=== PATIENT | female | born 1990 ===

== ENCOUNTER 2017-03-28 12:10 | Observation (INO) | payer OTHER ==
--- NOTE | 2017-03-28 12:50 | ED PDOC ---
HPI: Female Pain Time Seen by Provider: 03/28/17 12:49 Chief Complaint (Nursing): Female Genitourinary Chief Complaint (Provider): abdominal pain History Per: Patient (26 y/o female LMP 02/07/2017 here with crampy lower abdominal pain sent by [facility] for possible ectopic. Patient states she presented to clinic for elective termination but was not found to have any iup on ultrasound and sent to ED for possible ectopic. Denies any vaginal bleeding.) Past Medical History Reviewed: Historical Data, Nursing Documentation, Vital Signs Vital Signs: Last Vital Signs Temp 98.2 F 03/28/17 12:23 Pulse 74 03/28/17 12:23 Resp 16 03/28/17 12:23 BP 125/66 03/28/17 12:23 Pulse Ox 97 03/28/17 12:23 - Family History Family History: States: No Known Family Hx - Allergies Allergies/Adverse Reactions: Allergies Allergy/AdvReac Type Severity Reaction Status Date / Time No Known Allergies Allergy Verified 03/28/17 12:23 Review of Systems ROS Statement: Except As Marked, All Systems Reviewed And Found Negative Physical Exam - Reviewed Nursing Documentation Reviewed: Yes Vital Signs Reviewed: Yes - Physical Exam Appears: Positive for: Well, Non-toxic, No Acute Distress Head Exam: Positive for: ATRAUMATIC, NORMAL INSPECTION, NORMOCEPHALIC Skin: Positive for: Normal Color, Warm, DRY Eye Exam: Positive for: EOMI, Normal appearance, PERRL ENT: Positive for: Normal ENT Inspection Neck: Positive for: Normal, Painless ROM Cardiovascular/Chest: Positive for: Regular Rate, Rhythm Respiratory: Positive for: CNT, Normal Breath Sounds Gastrointestinal/Abdominal: Positive for: Normal Exam, Bowel Sounds, Soft Back: Positive for: Normal Inspection Extremity: Positive for: Normal ROM Neurologic/Psych: Positive for: Alert, Oriented - Laboratory Results Result Diagrams: 03/28/17 13:35 03/28/17 13:45 - ECG O2 Sat by Pulse Oximetry: 97 - Progress ED Course And Treament: us transvaginal: (+) ectopic 15 x [address] root in ovary d/w dr. Choudhary. Patient to OR at 6pm Disposition - Clinical Impression Clinical Impression: Ectopic of ovary - Patient ED Disposition Is Patient to be Admitted: Yes - Disposition Disposition Time: 16:11 Condition: FAIR - Pt Status Changed To: Hospital Disposition Of: Inpatient - Admit Certification Admit to Inpatient:: After my assessment, the patient will require hospitalization for at least two midnights. This is because of the severity of symptoms shown, intensity of services needed, and/or the medical risk in this patient being treated as an outpatient.
[2017-03-28 13:47] LABS: BASO # 0.1 K/uL (0.0-0.2); BASO % 1.4 % (0.0-2.0); EOS # 0.2 K/uL (0.0-0.7); EOS % 2.8 % (0.0-4.0); HEMATOCRIT 35.3 % (34.0-47.0); LYMPH # 1.3 K/uL (1.0-4.3); LYMPH % 19.6 % (20.0-40.0); MEAN CELL VOLUME 96.4 fl (81.0-99.0); MEAN CORPUSCULAR HEMOGLOBIN 31.9 pg (27.0-31.0); MEAN CORPUSCULAR HGB CONC 33.1 g/dL (33.0-37.0); MEAN PLATELET VOLUME 8.5 fl (7.2-11.7); MONO # 0.4 K/uL (0.0-0.8); MONO % 6.4 % (0.0-10.0); NEUT # 4.7 K/uL (1.8-7.0); NEUT % 69.8 % (50.0-75.0); RED CELL DISTRIBUTION WIDTH 13.4 % (11.5-14.5); WHITE BLOOD COUNT 6.8 K/uL (4.8-10.8)
[2017-03-28 14:19] LABS: ALB/GLOB RATIO 1.4 (1.0-2.1); ALKALINE PHOSPHATASE 74 U/L (38-126); ALT/SGPT 42 U/L (9-52); AST/SGOT 28 U/L (14-36); BILIRUBIN,TOTAL 0.5 mg/dl (0.2-1.3); BLOOD UREA NITROGEN 10 mg/dl (7-17); CALCIUM 9.2 mg/dL (8.4-10.2); CARBON DIOXIDE 23 mmol/L (22-30); CHLORIDE 104 mmol/L (98-107); GFR AFRICAN-AMERICAN > 60; GLUCOSE,RANDOM 107 mg/dL (65-105); POTASSIUM 3.7 MMOL/L (3.6-5.0); SODIUM 139 mmol/l (132-148); TOTAL PROTEIN 7.5 G/DL (6.3-8.2)
[2017-03-28] MEDS ORDERED: Sodium Chloride 0.9% 1,000 ML IV STA (15:29)
--- NOTE | 2017-03-28 15:45 | US ---
HISTORY: r/o ectopic. LMP 02/08/2017. Beta HCG results: 54406 units. COMPARISON: None available. TECHNIQUE: This and duplex so there is likely FINDINGS: UTERUS: Measures 4.5 x 6.5 x 9.3 cm. Normal in size and appearance. No fibroid or other mass lesion seen. ENDOMETRIUM: Measures endometrial hypertrophy. mm in diameter. Saclike structure likely decidual reaction identified in the uterus. Endometrial thickness 15 mm. CERVIX: No cervical abnormality identified. Closed cervix 4.1 cm. RIGHT OVARY: Measures 1.8 x 2.6 x 3.4 cm. No solid mass. Normal flow. Complex cyst with debris and an echogenic rim identified. No evidence of ectopic on the right. LEFT OVARY: Ectopic gestation in the left adnexa measuring 14 x 16 mm. Yolk sac and remnants of the pole identified. Overall measurements of the left ovary 1.6 x 2.2 x 2.1 cm. FREE FLUID: No significant free fluid noted. OTHER FINDINGS: None. IMPRESSION: Evidence of ectopic gestation on the left. Saclike structure within the endometrium without evidence of yolk sac or gestational pole, likely decidual reaction.
[2017-03-28] MEDS ORDERED: Rocuronium 10 mg/ml (5 ml) ONE (16:21)
[2017-03-28] MEDS ORDERED: Propofol 10 mg/ml Inj (20 ML) ONE (16:21)
[2017-03-28] MEDS ORDERED: Neostigmine Methylsulfate 3mg/3ml Syringe IV ONE (16:21)
[2017-03-28] MEDS ORDERED: Midazolam 2 MG/2 ML VIAL ONE (16:21)
[2017-03-28] MEDS ORDERED: Succinylcholine 200 mg/10 ml Inj IV ONE (16:22)
[2017-03-28 17:01] LABS: PARTIAL THROMBOPLASTIN TIME 33.1 Seconds (25.6-37.1)
--- NOTE | 2017-03-28 17:21 | CP.PCM.CON ---
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 LMP 02/07/2017, patient was told to visit ER after no IUP gestation was discovered via abdominal US. Currently stating crampy lower abdominal pain which is 3/10 intensity. Denies f/ c/n/v/cp/sob/dizziness/ vaginal bleeding/dysuria. Last meal was 12 pm, ate fried chicken. PMH: denies PSH: CS x 1, term Meds: none Allergies: NKDA Review of Systems - Review of Systems All systems: reviewed and no additional remarkable complaints except Past Patient History - Past Medical History & Family History Past Medical History?: No - Past Social History Smoking Status: Never Smoked - HEMATOLOGICAL/ONCOLOGICAL Hx AIDS: No Hx Human Immunodeficiency Virus (HIV): No - MUSCULOSKELETAL/RHEUMATOLOGICAL Hx Falls: No - PSYCHIATRIC Hx Psychophysiologic Disorder: No Hx Substance Use: No - SURGICAL HISTORY Hx Surgeries: No - ANESTHESIA Hx Anesthesia: Yes Hx Anesthesia Reactions: No Meds Allergies/Adverse Reactions: Allergies Allergy/AdvReac Type Severity Reaction Status Date / Time No Known Allergies Allergy Verified 03/28/17 12:23 Physical Exam - Constitutional Appears: Non-toxic, No Acute Distress - Head Exam Head Exam: ATRAUMATIC - Eye Exam Eye Exam: EOMI Pupil Exam: PERRL - ENT Exam ENT Exam: Mucous Membranes Moist - Respiratory Exam Respiratory Exam: Clear to Auscultation Bilateral - Cardiovascular Exam Cardiovascular Exam: +S1, +S2 - GI/Abdominal Exam GI & Abdominal Exam: Normal Bowel Sounds, Soft, Tenderness. absent: Distended, Firm, Guarding, Rebound, Rigid Additional comments: mild suprapubic tenderness to deep palpation - Extremities Exam Extremities exam: Positive for: normal inspection - Back Exam Back exam: absent: CVA tenderness (L), CVA tenderness (R) - Neurological Exam Neurological exam: Alert, Oriented x3 - Psychiatric Exam Psychiatric exam: Normal Affect, Normal Mood - Skin Skin Exam: Dry, Normal Color Results - Vital Signs Recent Vital Signs: Last Vital Signs Temp 98.7 F 03/28/17 17:07 Pulse 115 H 03/28/17 17:07 Resp 18 03/28/17 17:07 BP 116/71 03/28/17 17:07 Pulse Ox 99 03/28/17 17:07 - Labs Result Diagrams: 03/28/17 13:35 03/28/17 13:45 Assessment & Plan - Assessment and Plan (Free Text) Plan: 26 y/o female with lower abdominal pain 1. Ectopic in left adnexa - vital signs stable - HCG approx 22 000 - labs normal - US reveals possible ectopic on left side, approx [id number], with yolk sac and remnants of pole - discussed surgical treatment option due to size and US findings of ectopic , patient was explained all risks and benefits - All patient questions answered, patient verbalizes understanding of plan - OR called for need for emergency removal of ectopic - d/w Dr. Choudhary <Bari Choudhary - Last Filed: 03/29/17 01:58> Meds - Medications Medications: Current Medications Lactated Ringer's (Lactated Ringer's) 1,000 mls @ 100 mls/hr IV .Q10H SILVIA Oxycodone/Acetaminophen (Percocet 5/325 Mg Tab) 1 tab PO Q6 PRN PRN Reason: Pain, moderate (4-7) Stop: 03/31/17 20:13 Oxycodone/Acetaminophen (Percocet 5/325 Mg Tab) 2 tab PO Q6 PRN PRN Reason: Pain, severe (8-10) Stop: 03/31/17 20:13 Last Admin: 03/29/17 00:08 Dose: 2 tab Results - Vital Signs Recent Vital Signs: Last Vital Signs Temp 98.3 F 03/29/17 00:30 Pulse 95 H 03/29/17 00:30 Resp 19 03/29/17 00:30 BP 105/69 03/29/17 00:30 Pulse Ox 99 03/29/17 00:30 - Labs Result Diagrams: 03/28/17 13:35 03/28/17 13:45 Assessment & Plan - Assessment and Plan (Free Text) Plan: The patient was seen with the resident I agree with note. The patient gave informed consent we discussed the risks benefits and alternatives to surgery and the patient agreed to the plan of care QUESTIONS answered
[2017-03-28] MEDS ORDERED: ceFAZolin 1 GM in Sodium Chloride 0.9% 100 ML IVPB ONE (17:41)
[2017-03-28] MEDS ORDERED: ceFAZolin 2 GM in Sodium Chloride 0.9% 100 ML IVPB ONE (17:42)
[2017-03-28] MEDS ORDERED: Lidocaine 1% Inj (20ml) ONE (17:42)
[2017-03-28] MEDS ORDERED: Bupivacaine 0.5% Inj(30mL) ONE (17:42)
[2017-03-28] MEDS ORDERED: Lactated Ringer's 1,000 ML IV ONE ×2 (18:14→21:35)
[2017-03-28] MEDS ORDERED: Bupivacaine 0.5% 50 ML IJ ONE (18:51)
[2017-03-28] MEDS ORDERED: Oxycodone/Acetaminophen 5/325 mg Tab PO PRN (20:12)
[2017-03-28] MEDS: HYDROmorphone 0.5 mg/0.5 ml ISec IVP PRN ×4 (20:25→21:05)
[2017-03-28] MEDS ORDERED: HYDROmorphone 0.5 mg/0.5 ml ISec ONE ×2 (20:26→20:35)
[2017-03-28] MEDS ORDERED: Lactated Ringer's 1,000 ML IV SCH (20:38)
[2017-03-29] MEDS: Oxycodone/Acetaminophen 5/325 mg Tab PO PRN ×2 (00:08→08:28)
--- NOTE | 2017-03-29 05:46 | CP.PCM.CON ---
History of Present Illness - History of Present Illness History of Present Illness: Nurse Kervin from [facility]s alerted of patients discomfort. Vitals stable. Pt resting. Percocet given at midnight. Ordered Acetaminophen 650 mg q4 for mild pain. May alternate with Percocet when appropriate. NKDA. Morphine was considered, however, it was not recommended due to elevated hcg. Thank you for the opportunity to be part of this patient's care. andi, [email or web address] Past Patient History - Past Medical History & Family History Past Medical History?: No - Past Social History Smoking Status: Never Smoked - HEMATOLOGICAL/ONCOLOGICAL Hx AIDS: No Hx Human Immunodeficiency Virus (HIV): No - MUSCULOSKELETAL/RHEUMATOLOGICAL Hx Falls: No - PSYCHIATRIC Hx Psychophysiologic Disorder: No Hx Substance Use: No - SURGICAL HISTORY Hx Surgeries: No - ANESTHESIA Hx Anesthesia: Yes Hx Anesthesia Reactions: No Meds Allergies/Adverse Reactions: Allergies Allergy/AdvReac Type Severity Reaction Status Date / Time No Known Allergies Allergy Verified 03/28/17 12:23 - Medications Medications: Current Medications Acetaminophen (Tylenol 325mg Tab) 650 mg PO Q6 PRN PRN Reason: Pain, Mild (1-3) Last Admin: 03/29/17 04:54 Dose: 650 mg Lactated Ringer's (Lactated Ringer's) 1,000 mls @ 100 mls/hr IV .Q10H SILVIA Oxycodone/Acetaminophen (Percocet 5/325 Mg Tab) 1 tab PO Q6 PRN PRN Reason: Pain, moderate (4-7) Stop: 03/31/17 20:13 Oxycodone/Acetaminophen (Percocet 5/325 Mg Tab) 2 tab PO Q6 PRN PRN Reason: Pain, severe (8-10) Stop: 03/31/17 20:13 Last Admin: 03/29/17 00:08 Dose: 2 tab Results - Vital Signs Recent Vital Signs: Last Vital Signs Temp 98.3 F 03/29/17 00:30 Pulse 95 H 03/29/17 00:30 Resp 19 03/29/17 00:30 BP 105/69 03/29/17 00:30 Pulse Ox 99 03/29/17 00:30 - Labs Result Diagrams: 03/28/17 13:35 03/28/17 13:45
[2017-03-29 06:20] LABS: BASO % 0.3 % (0.0-2.0); EOS % 0.3 % (0.0-4.0); LYMPH # 1.3 K/uL (1.0-4.3); LYMPH % 13.1 % (20.0-40.0); MEAN CELL VOLUME 96.9 fl (81.0-99.0); MEAN CORPUSCULAR HEMOGLOBIN 32.7 pg (27.0-31.0); MEAN CORPUSCULAR HGB CONC 33.8 g/dL (33.0-37.0); MEAN PLATELET VOLUME 8.4 fl (7.2-11.7); MONO # 0.5 K/uL (0.0-0.8); NEUT % 81.3 % (50.0-75.0); RED CELL DISTRIBUTION WIDTH 13.2 % (11.5-14.5); WHITE BLOOD COUNT 9.8 K/uL (4.8-10.8)
[2017-03-29 07:05] VITALS: RESP 18
[2017-03-29 07:24] VITALS: BP 94/55; PULSE 81; TEMP 98.2; O2SAT 95
[2017-03-29] MEDS ORDERED: Methotrexate 50 mg/2 ml Inj IM ONE (07:57)
[2017-03-29 08:41] LABS: ALB/GLOB RATIO 1.3 (1.0-2.1); BILIRUBIN,TOTAL 0.5 mg/dl (0.2-1.3); TOTAL PROTEIN 6.3 G/DL (6.3-8.2)
[2017-03-29] MEDS ORDERED: PED IM ONE (09:15)
[2017-03-29] MEDS ORDERED: METHOTREXATE IM ONE (09:15)
--- NOTE | 2017-03-29 14:17 | OP ---
PROCEDURE DATE: PREOPERATIVE DIAGNOSIS: Left ectopic . POSTOPERATIVE DIAGNOSIS: Left ectopic . OPERATION PERFORMED: Exploratory laparoscopy, lysis of anterior abdominal wall adhesions secondary to previous section, and D and C. OPERATIVE FINDINGS: Normal tubes and ovaries. No ectopic clearly identified. SURGEON: Bari Choudhary MD FABRICATION INSPECTOR: Dr. Slaughter. He was instrumental in the care of the patient. She helped with camera work, retraction and helped clear exposure and closure of the patient. COMMENTS: The patient went to [facility] for termination of . At that time, no intrauterine was identified. The patient beta quant of 22,000. The patient was instructed to follow up in the ER for evaluation of ectopic . The patient presented to [facility]. Repeat sonogram was performed. No intrauterine identified, beta 22,000 and suspicious findings on left ovary for ectopic . Informed consent was obtained from the patient. We discussed the risks, benefits and alternatives to the surgery. We discussed medical and surgical management after thorough discussion considering a beta of 22,000. The patient opted for surgical management. We then proceed to the operating room. DESCRIPTION OF PROCEDURE: After informed consent was obtained, the patient was taken to the operating room. She was placed in the dorsal lithotomy position. The patient was then prepped and draped in a normal sterile fashion. Attention was then turned to the vagina, where a weighted-speculum was inserted into the vagina, grasped with a single-tooth tenaculum and the cervix was gently dilated. The HUMI uterine manipulator was inserted as a means to manipulate the uterus. Segovia catheter was placed in the urethra and monitored the patient's urinary output. Attention was then turned to umbilicus where a 5-mm incision was made. The abdomen was tented upward and a Veress needle was inserted into the abdominal cavity. The abdomen was then insufflated to 15 mmHg. The Veress needle was then removed and 5-mm trocar was introduced into the abdominal cavity and placement confirmed with the laparoscope. The abdomen was surveyed, there were dense adhesions, the uterus was tacked to the posterior aspect of the abdominal wall. We examined the right and left tube, which appeared normal and the right and left ovary, which appeared normal. The left ovary appeared to have a large corpus luteum cyst. There was no blood in the abdomen. The ectopic was not clearly identified, so then I proceeded to mobilize the uterus using both sharp and blunt dissection. The adhesions from the anterior abdominal wall were lysed. The anterior aspect of the uterus was examined, no ectopic identified anteriorly. Attention was then turned to the left ovary. The cyst was scored and its contents appeared to be corpus luteum cyst. The abdomen was then irrigated and hemostasis was obtained using the laparoscopic scissor and coagulation. All instruments were then removed from the abdomen and the incisions were closed with Dermabond. Attention was then turned to the vagina where a sharp curettage was performed and endometrial curettings were sent to pathology. All sponge, lap, needle, and instruments counts were correct x2 and the patient was awakened from general anesthesia. Postoperatively, we discussed the operative findings with the patient, which showed the photomicrographs of no clear ectopic. We discussed observation and possible methotrexate administration in the morning following a repeat data. The patient agreed to plan of care. Bari Choudhary MD
== END 2017-03-29 16:29 | disposition home or self-care (01) ==
LOC: H.ER 12:10 → H.ERHOLD 15:50 → H.MEDSURG1 16:59
PROVIDERS: ADMIT Obstetrics & Gynecology Gynecology; ATTEND Obstetrics & Gynecology Gynecology
DX: O00.20 Ovarian pregnancy without intrauterine pregnancy (principal); N73.6 Female pelvic peritoneal adhesions (postinfective)
CPT/HCPCS: 36415; 58120; 76817; 80053; 80076; 81025; 84702; 84703; 85025; 85027; 85610; 85730; 86850; 86900; 88305; 99284; G0378; J0330; J0694; J1170; J1885; J2001; J2250; J2405; J2704; J2710; J3010; J7030; J7040; J7120; J9250